=== PATIENT | female | born 1945 | race Caucasian/White ===

== ENCOUNTER 2023-09-28 11:16 | Emergency (ER) | payer MEDICARE, OTHER ==
[2023-09-28] MEDS ORDERED: Doxycycline 100 MG CAP ONE (12:16)
== END 2023-09-28 12:18 | disposition home or self-care (01) ==
LOC: BURERS 11:16
DX: R04.0 Epistaxis (principal); I10 Essential (primary) hypertension; Z79.899 Other long term (current) drug therapy
CPT/HCPCS: 99283